=== PATIENT | female | born 1995 | race American Indian/Alaskan Native ===

== ENCOUNTER 2018-12-12 02:24 | Emergency (ER) | payer BC ==
[2018-12-12 05:10] VITALS: BP 137/96
[2018-12-12] MEDS ORDERED: IBUPROFEN PO ONE (07:41)
[2018-12-12] MEDS ORDERED: BENADRYL PO ONE (07:41)
--- NOTE | 2018-12-12 07:41 | Emergency Department Report ---
Abscess Boil HPI - HPI Chief Complaint: Skin/Abscess/Foreign Body Stated Complaint: VAG BUMP/PAIN Time Seen by Provider: 12/12/18 07:15 Duration: 2 Days Location: Other (Vaginal) History: Yes Pain, No Fever, No Purulent Drainage, No Numbness, No Foreign Body, No Previous History, No Insect Bite HPI: This is a 23-year-old female presents with ball to her vaginal area. Patient states it's been hurting her for the past 2 days. Patient states the bit swollen. She denies drainage from the site. She denies fevers/chills/nausea or vomiting. Home Medications: Previous Rx's Medication Instructions Recorded Last Taken Type Ibuprofen [Motrin] 600 mg PO Q8H PRN #30 tablet 12/12/18 Unknown Rx Sulfamethoxazole/Trimethoprim 1 each PO BID #20 tablet 12/12/18 Unknown Rx [Bactrim DS TAB] Allergies/Adverse Reactions: Allergies Allergy/AdvReac Type Severity Reaction Status Date / Time No Known Allergies Allergy Unverified 12/12/18 02:54 ED Review of Systems ROS: Stated complaint: VAG BUMP/PAIN Other details as noted in HPI Comment: All other systems reviewed and negative ED Past Medical Hx - Past Medical History Previous Medical History?: No - Surgical History Past Surgical History?: No - Social History Smoking Status: Never Smoker Substance Use Type: None - Medications Home Medications: Home Medications Medication Instructions Recorded Confirmed Last Taken Type Ibuprofen [Motrin] 600 mg PO Q8H PRN #30 tablet 12/12/18 Unknown Rx Sulfamethoxazole/Trimethoprim 1 each PO BID #20 tablet 12/12/18 Unknown Rx [Bactrim DS TAB] ED Abscess Boil Physical Exam - Exam General: Vital signs noted. No distress. Alert and acting appropriately. Size: 1 cm Exam: Yes Tenderness, Yes Fluctuance, Yes Surrounding Cellulites/Erythema, Yes Normal Circulation, No Lymphangitis, No Crepitation, No Heart Murmur, No Normal Neurologic Exam I & D Note - I & D Note I & D Note: Patient positioned appropriately, 5cc lidocaine without epinephrine was used as a local anesthetic. #11 blade scalpal used for single incision. Additional local anesthetic injected into surrounding viable tissue prior to blunt dissection of loculated adhesions. Copius drainage of pus. Procedure tolerated without complications. Wound dressed with sterile 4x4 guaze and paper tape. Pt tolerated procedure well. ED Course Vital Signs 12/12/18 12/12/18 02:29 05:06 Temperature 98.6 F 98.6 F Pulse Rate 94 H 93 H Respiratory 18 16 Rate Blood Pressure 153/99 137/96 Blood Pressure 137/96 [Left] O2 Sat by Pulse 100 100 Oximetry Critical care attestation.: If time is entered above; I have spent that time in minutes in the direct care of this critically ill patient, excluding procedure time. ED Disposition Clinical Impression: Abscess of pubic region Disposition: DC-01 TO HOME OR SELFCARE Is pt being admited?: No Does the pt Need Aspirin: No Condition: Stable Instructions: Abscess (ED), Bartholin Cyst (ED), Sitz Bath (GEN) Additional Instructions: Make sure to follow up with the primary care physician as discussed. Take all your medications as you've been prescribed. If you have any worsening symptoms or develop new symptoms please return to ED immediately. Prescriptions: Ibuprofen [Motrin] 600 mg PO Q8H PRN #30 tablet PRN Reason: Pain Sulfamethoxazole/Trimethoprim [Bactrim DS TAB] 1 each PO BID #20 tablet Referrals: DIANNA PEREZ [Other] - 3-5 Days [facility] [Outside] - 3-5 Days [facility] [Outside] - 3-5 Days Forms: Accompanied Note, Work/School Release Form(ED)
== END 2018-12-12 08:35 | disposition home or self-care (01) ==
LOC: ED 02:24
DX: L02.214 Cutaneous abscess of groin (principal)
CPT/HCPCS: 99282